=== PATIENT | male | born 1960 | race Caucasian/White ===

== ENCOUNTER 2018-04-10 16:36 | Emergency (ER) | payer MEDICARE, MEDICAID ==
[~2018-04-10] VITALS: Ht 170.2 cm; Wt 60.8 kg
[~2018-04-10 16:36] MED LIST: OXCA150T5 PO
[2018-04-10 16:58] VITALS: BP 145/18
== END 2018-04-10 18:45 | disposition home or self-care (01) ==
LOC: ER 16:38
DX: S66.394A Other injury of extensor muscle, fascia and tendon of right ring finger at wrist and hand level, initial encounter (principal); M20.011 Mallet finger of right finger(s); I10 Essential (primary) hypertension; Z60.2 Problems related to living alone; X58.XXXA Exposure to other specified factors, initial encounter; Y93.89 Activity, other specified; Y92.89 Other specified places as the place of occurrence of the external cause; Y99.8 Other external cause status
CPT/HCPCS: 73140-TC; A4606; Z7610

== ENCOUNTER 2019-03-02 17:38 | Emergency (ER) | payer MEDICARE, MEDICAID ==
[~2019-03-02] VITALS: Ht 175.3 cm; Wt 78.9 kg
[2019-03-02 17:51] VITALS: BP 145/91
--- NOTE | 2019-03-02 18:15 | NUR ---
PT WAS UNABLE TO PROVIDE URINE AT THIS TIME
== END 2019-03-02 19:51 | disposition home or self-care (01) ==
LOC: ER 17:38
DX: L72.3 Sebaceous cyst (principal); N50.3 Cyst of epididymis; G40.909 Epilepsy, unspecified, not intractable, without status epilepticus; I10 Essential (primary) hypertension; Z88.0 Allergy status to penicillin; Z88.5 Allergy status to narcotic agent; Z60.2 Problems related to living alone; Z79.899 Other long term (current) drug therapy
CPT/HCPCS: 76870-TC